=== PATIENT | male | born 1950 | race Caucasian/White ===

== ENCOUNTER 2018-02-22 08:36 | Day surgery (SDC) | payer OTHER ==
[2018-02-19 13:19] VITALS: BMI 30.1
[2018-02-22] MEDS ORDERED: DEXAMETHASONE SOD PHOSPHATE 4 MG/1 ML VIAL ONE (09:27)
[2018-02-22] MEDS ORDERED: PROPOFOL 20 ML ONE ×2 (09:27→09:45)
[2018-02-22] MEDS ORDERED: LIDOCAINE HCL/PF 2% SDV 5ML VIAL ONE (09:27)
[2018-02-22] MEDS ORDERED: oxyCODONE HCL 5 MG TABLET PO PRN (09:42)
[2018-02-22] MEDS ORDERED: IBUPROFEN 800 MG/8 ML IJ IVPB PRN (09:42)
[2018-02-22] MEDS ORDERED: ONDANSETRON 4 MG/2 ML VIAL IVPUSH PRN (09:42)
[2018-02-22] MEDS ORDERED: LACTATED RINGERS SOLUTION 1,000 ML IV SCH (09:45)
--- NOTE | 2018-02-22 11:01 | OP ---
Operative Note - Note: Operative Date: 02/22/18 Pre-Operative Diagnosis: bph/urinary retention Operation: transurethral resection and vaporization of the prostate utilizing bipolar system Findings: 3+ obstructive prostate with 2+ bladder trabeculation Post-Operative Diagnosis: Same as Pre-op Surgeon: Geraldo Olson Anesthesia: General Specimens Removed: prostatic chips Estimated Blood Loss (mls): 50 Drains & Tubes with Location: 22 stateless toth Operative Report Dictated: Yes
[2018-02-22 14:14] VITALS: BP 154/89; PULSE 63; TEMP 97.4
--- NOTE | 2018-02-22 19:36 | OP ---
DATE OF OPERATION: 02/22/2018 PREOPERATIVE DIAGNOSES: Benign prostatic hypertrophy and urinary retention. POSTOPERATIVE DIAGNOSES: Benign prostatic hypertrophy and urinary retention. PROCEDURE: Transurethral resection and transurethral vaporization of the prostate using bipolar system. ATTENDING: Marian Caldwell MD ANESTHESIA: General. DESCRIPTION OF OPERATION: The patient was brought in the operating room, placed in supine position on the operating room table. Anesthesia and preoperative antibiotics were administered without complications. Patient was then placed in the dorsal lithotomy position and prepped and draped in the usual sterile manner. A resectoscope was placed under visualization into the bladder. The bladder was investigated and noted to have no evidence of stones or neoplasm. A 3+ obstructive prostate was noted. Resection of the prostate in order to debulk the prostate was performed initially. The margins of the resection were the bladder neck proximally and the verumontanum distally. The resection was performed in a 360-degree fashion. The resection was taken down to the level of the pseudocapsule of the prostate. Once this was performed, all prostatic chips were evacuated from the bladder utilizing the TierPM evacuator. At this point, the working element, which had been the loop, was changed to a button. Vaporization and cauterization was then ensured utilizing the button element of the bipolar system. Residual tissue was vaporized, and excellent hemostasis was attained within the prostatic fossa. The margins of the vaporization and cauterization were the bladder neck proximally and the verumontanum distally. This was done again in a 360-degree fashion. Excellent hemostasis was attained. The bladder was investigated and noted to have no evidence of residual prostatic tissue. There was no evidence of perforation of the bladder. The abdomen was soft on examination during the procedure. With excellent hemostasis, the resectoscope was removed, and a Cordoba catheter placed, 30 mL were inflated into the balloon of the catheter and placed on light traction. Excellent drainage was noted which was light pink in color. The disposition of the patient was to the recovery room. The catheter had been placed to straight drainage. The patient will be observed in the recovery room and the postop area. If the patient continues to do well, he will be discharged home. MARIAN CALDWELL M.D. [id number]
--- NOTE | 2018-02-23 18:33 | PATH ---
Surgical Pathology Report Patient Name: RONALDO CALI [facility]. Rec. #: [id number] /Age/Gender: 1950 (Age: 67) / M Account: [id number] Location: [facility] SURGICAL Taken: 02/22/2018 Received: 02/22/2018 Reported: 02/23/2018 Physicians: Geraldo Olson Specimen(s) Received PROSTATE CHIPS Clinical History Benign prostatic hyperplasia Final Diagnosis PROSTATE TISSUE, TRANSURETHRAL RESECTION OF THE PROSTATE: BENIGN PROSTATE TISSUE SHOWING GLANDULAR AND STROMAL HYPERPLASIA, WITH CHRONIC AND FOCAL ACUTE PROSTATITIS. ADJACENT UROTHELIAL MUCOSA SHOWING ACUTE AND CHRONIC FORMATION WITH CYSTICA GLANDULARIS. Electronically Signed Parisa Miranda M.D. Gross Description Received in formalin labeled "prostate tissue," is a 9 g, 8.5 x 6.5 x 0.6 cm aggregate of multiple velazquez, irregular, firm to rubbery portions of tissue, consistent with prostate chips. The specimen is entirely submitted in 9 cassettes. /02/22/2018 saudi/02/22/2018
== END 2018-02-22 17:45 | disposition home or self-care (01) ==
LOC: JASU-SURG 08:36
PROVIDERS: ATTEND Urology
PROC: 0VT08ZZ Resection of Prostate, Via Natural or Artificial Opening Endoscopic (ICD-10-PCS; principal; 2018-02-22 10:00)
DX: N40.1 Benign prostatic hyperplasia with lower urinary tract symptoms (principal); R33.8 Other retention of urine
CPT/HCPCS: 88305-TC; 94760